=== PATIENT | male | born 1980 | race Caucasian/White ===

== ENCOUNTER 2017-01-06 02:16 | Emergency (ER) | payer OTHER ==
[2017-01-06 04:15] VITALS: BP 138/91
== END 2017-01-06 04:15 | disposition home or self-care (01) ==
LOC: ED 02:16
DX: S62.91XA Unspecified fracture of right hand, initial encounter for closed fracture (principal); Y35.813A Legal intervention involving manhandling, suspect injured, initial encounter; Y93.89 Activity, other specified; Y99.8 Other external cause status; Y92.89 Other specified places as the place of occurrence of the external cause
CPT/HCPCS: Q0092